=== PATIENT | female | born 1970 | race Caucasian/White ===

== ENCOUNTER 2020-04-08 16:55 | Emergency (ER) | payer OTHER, SELFPAY ==
[2020-04-08 17:02] VITALS: BP 125/78; PULSE 122; RESP 18; TEMP 36.6; O2SAT 98
--- NOTE | 2020-04-08 17:31 | ED.GENADUL_ITS ---
Discharge Plan Disposition Patient Disposition: HOME Condition: Improving Discharge Details Clinical Impression: Leg ulcer Primary Care Provider: None,None ED Provider: Lico Biggs Home Meds and New Rx's Prescriptions: Continued ciprofloxacin HCl 500 mg Tablet PO BID RF: 0 trazodone 100 mg Tablet 100 mg PO QHS PRNRF: 0 gabapentin 300 mg Tablet 300 mg PO TID RF: 0 Discharge Instructions Additional Instructions: Our direct care professional will arrange an outpatient follow-up for you to establish care. We have also asked him to arrange outpatient follow-up in wound care. You will receive a call regarding these details. Continue your regularly prescribed medications. Leave the Mepilex dressing in place 7 to 10 days until seen for your follow-up appointment. May use the provided Benadryl 1 to 2 tablets at bedtime as needed for sleep. When taking in conjunction with your trazodone this may cause increased sleepiness. Return to the ER if you have a fever or any other acute concerns. Ibuprofen as needed for discomfort. Discharge Data Discharge Date/Time-TO BE ENTERED AT DEPARTURE: 04/08/20 19:20 Medical Decision Making 49-year-old female who states she arrived today in relocation from her previous home in [place]. She states she has had 2 years of wound care treatment for a poor healing right anterior tibial leg ulcer. She states it has not changed, has not had a fever, no warmth, no erythema. She states is simply frustrated with her lack of response and given that she arrived in [place] today, felt that she would begin to explore treatment options. She does not have a fever, she is slightly anxious and with elevated pulse at triage, less than 100 at the time of my exam. Wound swab was obtained for culture. The wound was irrigated and cleansed. The ulcer was dressed with Mepilex. I have asked care management to arrange follow-up in primary care for her to establish care and as well to refer for wound care either through the wound care nurses, the surgery clinic, or wound care at [facility]. HPI General Mode of arrival: ambulatory . Date/Time Provider Initiated Documentation: 04/08/20 16:56 . Limitations to Documentation: no limitations . Information obtained by: patient . History of Present Illness 49 year old F presents to the emergency department with the chief complaint of Right anterior tibia ulcer for 2 years, described as moderate, Quality is described as dull and constant, and is localized to the right and lower extremity. Patient reports no radiation. Patient started experiencing this year(s) and it has been constant. No relieving factors improve symptom(s), No exacerbating factors reported . Patient notes denies fever/chills, headaches, malaise, nausea/vomiting, syncope and weakness. Patient did receive the following treatments prior to arrival, none Related Data Home Medications Medication Instructions Recorded Confirmed ciprofloxacin HCl mg PO BID 04/08/20 gabapentin 300 mg PO TID 04/08/20 04/08/20 trazodone 100 mg PO QHS PRN 04/08/20 04/08/20 Allergies Allergy/AdvReac Type Severity Reaction Status Date / Time sulfamethoxazole Allergy Skin Rash Unverified 04/08/20 17:11 [From Bactrim] trimethoprim [From Bactrim] Allergy Skin Rash Unverified 04/08/20 17:11 General Stated Complaint: Cellulitis BETH: 3 Review of Systems Narrative: 6 systems reviewed and otherwise negative. No fever, no chills. [facility] Social History Smoking/Tobacco Use Status: Current every day Smoking risk assessment performed?: Yes Alcohol Intake: never Drug use: Never Substance use type: does not use Do you feel safe at home: Yes Do you feel safe in your relationship?: Yes Exam Narrative Exam Narrative: GEN: awake, alert, oriented 3. Pleasant, well groomed, interactive. HEAD: Normocephalic, atraumatic ENT: Mucous membranes moist, oropharynx unremarkable, External ear exam unremarkable EYES: PERRL, EOMI EXT: Full ROM, right anterior tibia ulceration with granulation tissue at edges. Measures approximately 10 x 20 cm. Palpable DP bilaterally. Neuro: Grossly normal neurologic exam, conversant, interactive. Psych: Speech fluent, thoughts congruent, affect normal Course Vital Signs Vital signs: Vital Signs Temperature 36.6 C 04/08/20 17:02 Pulse 122 H 04/08/20 17:02 Respiratory Rate 18 04/08/20 17:02 Blood Pressure 125/78 04/08/20 17:02 Pulse Oximetry 98 04/08/20 17:02 Temperature 36.6 C 04/08/20 17:02 Temperature Source Temporal Artery Scan 04/08/20 17:02 Pulse 122 H 04/08/20 17:02 Respiratory Rate 18 11/10/20 17:02 Respiratory Effort Non-Labored 04/08/20 17:09 Blood Pressure 125/78 04/08/20 17:02 Blood Pressure Position Sitting 04/08/20 17:02 Pulse Oximetry 98 04/08/20 17:02 Oxygen Delivery Method Room Air 04/08/20 17:02 Oxygen Flow Rate 0 04/08/20 17:02 Pain Level 10 04/08/20 17:02
[2020-04-08] MEDS: Acetaminophen 500 MG TAB 1000 MG PO (18:39)
[2020-04-08] MEDS: Ibuprofen 600 MG TAB, 6 TABS/BTL PO (18:53)
[2020-04-08] MEDS: diphenhydrAMINE 25 MG CAP 50 MG PO (18:53)
--- NOTE | 2020-04-08 18:55 | NUR.NOTE ---
Lower R leg-mepelex dressing applied with stretching stocking applied.Nursing Note:
[2020-04-08 19:18] VITALS: BP 132/78; PULSE 82; RESP 18; TEMP 36.6; O2SAT 97
--- NOTE | 2020-04-09 16:55 | PDOC.ERCMPRO ---
- If Service Date Differs Date of service: 04/09/20 Time of Service: 16:56 Care Management Progress Note Juanis presents to the ED on 04/08/20 for a right leg ulceration. At the request of Dr. Biggs, ED provider, coordinates a referral to Patrick Mcguire MD, [id number], of [facility], to assist Juanis in obtaining a follow up appointment and in establishing care with a local PCP. A referral is also made to the [facility] for wound care.
== END 2020-04-08 19:20 | disposition home or self-care (01) ==
PROVIDERS: Emergency Provider Emergency Medicine
DX: L97.819 Non-pressure chronic ulcer of other part of right lower leg with unspecified severity (principal); F17.210 Nicotine dependence, cigarettes, uncomplicated
CPT/HCPCS: 87077; 99282; 87070; 87186; 87205; 99283

== ENCOUNTER 2020-07-16 09:53 | Outpatient (REF) | payer OTHER, SELFPAY ==
--- NOTE | 2020-07-16 09:30 | PAPFT_PTH ---
PATIENT: Juanis Russell LOC: [facility] U#:[id number] AGE/SX: 50/F ROOM: RE07/16/[address]: Vitaliy Lowe NP : 1970 BED: DIS: 07/16/2020 SPEC #: [id number] RECD: 07/16/20 13:11 STATUS: SARA REKarma #: [id number] PAZ: 07/16/20 09:[address]: Vitaliy Lowe DEPT: [facility] Cytology RECD BY: Cassie Coats Tissues: 1 - CX/ENDOCX FOR PAP SMEARS Procedures: PAP THIN PREP/UVM Screening HPV DNA PROBE Comments: [id number]
== END 2020-07-16 09:54 | disposition home or self-care (01) ==
LOC: LBN 09:53
PROVIDERS: PCP Nurse Practitioner Family; Visit Provider Nurse Practitioner Family
DX: Z12.4 Encounter for screening for malignant neoplasm of cervix (principal); Z11.51 Encounter for screening for human papillomavirus (HPV)
CPT/HCPCS: 88142; 87624

== ENCOUNTER 2020-07-16 10:02 | Outpatient (CLI) | payer OTHER, SELFPAY ==
[2020-07-16 13:05] LABS: Hemoglobin A1C 5.5 % (<5.7)
[2020-07-16 14:36] LABS: Calculated LDL 88 mg/dL (<100); Cholesterol 156 mg/dL (<200); HDL Cholesterol 59 mg/dL (40-60); Triglyceride 48 mg/dL (<150)
== END 2020-07-16 10:03 | disposition home or self-care (01) ==
LOC: LOS 10:03
PROVIDERS: PCP Nurse Practitioner Family; Visit Provider Nurse Practitioner Family
DX: K21.9 Gastro-esophageal reflux disease without esophagitis (principal); F17.200 Nicotine dependence, unspecified, uncomplicated; F31.9 Bipolar disorder, unspecified; Z13.1 Encounter for screening for diabetes mellitus; Z13.6 Encounter for screening for cardiovascular disorders
CPT/HCPCS: 36415; 80061; 83036